=== PATIENT | female | born 1970 | race Caucasian/White ===

== ENCOUNTER 2019-03-07 21:43 | Emergency (ER) | payer OTHER ==
[~2019-03-07] VITALS: Ht 149.9 cm; Wt 72.6 kg
[2019-03-07 21:52] VITALS: BP 122/60
--- NOTE | 2019-03-07 22:00 | NUR ---
TO LOBBY A/W BED, AMB, VSS, EKG DONE , ERMD NOTED
--- NOTE | 2019-03-07 22:10 | NUR ---
PT CAME INTO ER WITH C/O PAIN IN THE EPIGASTRIC REGION. PT STATED SHE HAS PAIN WHILE DRINKING WATER OR EATING FOOD. PT HAS HX OF ACID REFLUX. PT IS CURRENTLY TAKING MEDICATION ONCE A DAY. THE NAME OF THE MEDICATION IS UNKNOWN AT THIS TIME. PT IS A/OX4. PT DENIES CARDIAC HX. PT STATES THAT SHE HAS BURNING AND PAIN 7/10 AT THIS TIME. ER MD MADE AWARE OF STATUS. SAFETY PRECAUTIONS IN PLACE. BED RAILS UP X 2. DAUGHTER AT BEDSIDE.
--- NOTE | 2019-03-08 00:37 | NUR ---
PT LYING IN BED, VSS, FAMILY AT BEDSIDE
[2019-03-08] MEDS ORDERED: ALUMINUM HYD/MAG/SIMETHICONE 30 ML UDC PO ONE (00:40)
[2019-03-08] MEDS ORDERED: LIDOCAINE VISCOUS 2% 20 ML UDC PO ONE (00:40)
[2019-03-08] MEDS ORDERED: DICYCLOMINE HCL LIQUID 10 MG/5 ML UDC PO ONE (00:40)
[2019-03-08] MEDS ORDERED: PANTOPRAZOLE 40 MG TABEC PO ONE (00:40)
[2019-03-08 01:01] VITALS: BP 125/65
--- NOTE | 2019-03-08 01:01 | NUR ---
Patient discharged with v/s stable. Written and verbal after care instructions given and explained. Patient alert, oriented and verbalized understanding of instructions. Ambulatory with steady gait. All questions addressed prior to discharge. ID band removed. Patient advised to follow up with PMD. Rx of MAALOX, PROTONIX, CARAFATE given. Patient educated on indication of medication including possible reaction and side effects. Opportunity to ask questions provided and answered.
== END 2019-03-08 01:01 | disposition home or self-care (01) ==
LOC: MED 21:43
DX: K21.0 Gastro-esophageal reflux disease with esophagitis (principal); E11.9 Type 2 diabetes mellitus without complications; Z90.49 Acquired absence of other specified parts of digestive tract
CPT/HCPCS: 93005; 99284

== ENCOUNTER 2020-06-17 13:36 | Emergency (ER) | payer BC, OTHER, SELFPAY ==
[~2020-06-17] VITALS: Ht 152.4 cm; Wt 74.8 kg
[2020-06-17 13:56] VITALS: BP 143/86
[2020-06-17 15:07] VITALS: BP 143/86
--- NOTE | 2020-06-17 15:07 | NUR ---
c/o fever nausea and headaches <1 wk may have been exposed to a family member covid-19 positive---
--- NOTE | 2020-06-17 15:08 | NUR ---
Patient discharged with v/s stable. Written and verbal after care instructions given and explained. Patient alert, oriented and verbalized understanding of instructions. Ambulatory with steady gait. All questions addressed prior to discharge. ID band removed. Patient advised to follow up with PMD. Rx of promethazine/motrin given. Patient educated on indication of medication including possible reaction and side effects. Opportunity to ask questions provided and answered.
--- NOTE | 2020-06-17 15:08 | NUR ---
covid-19 swab collected
== END 2020-06-17 15:08 | disposition home or self-care (01) ==
LOC: MED 13:36
DX: R05 Cough (principal); Z20.828 Contact with and (suspected) exposure to other viral communicable diseases; R11.0 Nausea; J02.9 Acute pharyngitis, unspecified; E11.9 Type 2 diabetes mellitus without complications; I10 Essential (primary) hypertension; E07.9 Disorder of thyroid, unspecified; Z90.49 Acquired absence of other specified parts of digestive tract; Z98.890 Other specified postprocedural states
CPT/HCPCS: 99283; U0003